=== PATIENT | male | born 1965 | race Caucasian/White ===

== ENCOUNTER 2019-10-02 17:00 | Emergency (ER) | payer OTHER ==
[~2019-10-02] VITALS: Ht 157.5 cm; Wt 80.7 kg
== END 2019-10-02 21:30 | disposition home or self-care (01) ==
LOC: ER 17:00 → CPU-OBS 18:13 → ER 21:30
DX: R07.89 Other chest pain (principal)
CPT/HCPCS: 93005; G0378; G0379